=== PATIENT | female | born 1975 | race Caucasian/White ===

== ENCOUNTER → 2018-11-15 | Outpatient (CLI) | payer OTHER | LOC: MAMMO 15:22 | PROVIDERS: ATTEND Student in an Organized Health Care Education/Training Program | DX: Z12.31 Encounter for screening mammogram for malignant neoplasm of breast (principal) | CPT/HCPCS: 77067 ==

== ENCOUNTER → 2019-01-22 | Outpatient (CLI) | payer OTHER ==
--- NOTE | 2019-01-23 16:39 | Diagnostic Imaging Report ---
#[id number] - MGDXBIL #BILATERAL DIGITAL DIAGNOSTIC MAMMOGRAM WITH SPOT COMPRESSION: 01/22/2019 Comparison is made to exams dated: 11/15/2018 mammogram, 12/04/2016 ultrasound, 12/04/2016 mammogram, 08/04/2015 ultrasound, 08/04/2015 mammogram and 12/16/2014 mammogram - [facility] [place]. Current study contains 4 films. The tissue of both breasts is heterogeneously dense. This may lower the sensitivity of mammography. A dominant mass is noted in the left breast at the 2 o'clock position. Possible mass at 10 o'clock in the right breast. These findings are suggestive of cysts. No significant masses, calcifications, or other findings are seen in either breast. IMPRESSION: INCOMPLETE: NEEDS ADDITIONAL IMAGING EVALUATION Mammographic findings persist with focal spot compression. Ultrasound of both breasts recommended and will follow this study. Reji Piedra Jr., D.O. cw/:01/22/2019 16:35:58 Plush Weaver: Nikole SELF(Madhavi)(M), [facility] [place] letter sent: Additional Imaging Needed Mammogram BI-RADS: 0 Indeterminate
--- NOTE | 2019-01-23 16:39 | Diagnostic Imaging Report ---
#[id number] - [facility] [place] ULTRASOUND OF THE RIGHT BREAST : 01/22/2019 No prior exams were available for comparison. Color flow and real-time ultrasound were performed on the entire right breast with scanning in all four quadrants, retroareolar region and the right axilla. -At 7 o'clock 1 cm from the nipple is a cluster of cysts with composite measurement of 7 x 4 x 7 mm -At 3 o'clock retroareolar region is a simple cyst measuring 7 x 3 x 5 mm -At 4 o'clock 4 cm from the nipple is a simple cyst measuring 7 x 3 x 5 mm -At 11 o'clock there is a small cluster of cysts -No solid mass identified IMPRESSION: BENIGN There is no sonographic evidence of malignancy. A 1 year screening mammogram is recommended. Reji Piedra Jr., D.O. cw/:01/23/2019 09:40:39 Card Setter: ROMI POP RDMS, [facility] letter sent: Normal Exam Ultrasound BI-RADS: 2 Benign
--- NOTE | 2019-01-23 16:39 | Diagnostic Imaging Report ---
#[id number] - [facility] ULTRASOUND OF THE LEFT BREAST : 01/22/2019 No prior exams were available for comparison. Color flow and real-time ultrasound were performed on the entire left breast with scanning in all four quadrants, retroareolar region and the left axilla. -At 2 o'clock 1 cm from the nipple is a 2.2 x 1.1 cm cyst. This corresponds to the dominant mass on the mammogram. -At 10 o'clock 6 cm from the nipple is a complex cyst measuring 0.4 x 0.4 x 0.5 cm with internal echoes. -A cluster of cysts with composite 0.5 cm measurement is present in the axillary tail. IMPRESSION: BENIGN There is no sonographic evidence of malignancy. A 1 year screening mammogram is recommended. Reji Piedra Jr., D.O. cw/:01/23/2019 09:30:14 Machine Assembler Supervisor: ROMI POP RDMS, [facility] letter sent: Normal Exam Ultrasound BI-RADS: 2 Benign
== END ==
LOC: MAMMO 10:02
PROVIDERS: ATTEND Student in an Organized Health Care Education/Training Program
DX: N63.20 Unspecified lump in the left breast, unspecified quadrant (principal); N63.10 Unspecified lump in the right breast, unspecified quadrant
CPT/HCPCS: 77066

== ENCOUNTER → 2024-07-21 | Outpatient (REF) | payer BC | LOC: MAMMO 10:01 | PROVIDERS: ATTEND Student in an Organized Health Care Education/Training Program | DX: Z12.31 Encounter for screening mammogram for malignant neoplasm of breast (principal) | CPT/HCPCS: 77067 ==